=== PATIENT | female | born 1945 | race Caucasian/White ===

== ENCOUNTER 2020-07-18 12:36 | Observation (INO) | payer OTHER, BC ==
[2020-07-18 14:50] LABS: Absolute Lymphocytes (CBC) 1.1 K/uL (0.7-4.9); Basophils % 2.1 % (0-1.3); Lymphocytes % 23.1 % (15.3-44.8); MPV 9.8 fL (7.6-11.3); RBC Red Blood Cell Count 4.57 M/uL (3.86-4.86)
[2020-07-18 14:56] LABS: Protime INR 1.08
[2020-07-18 15:08] LABS: ALT/SGPT 20 U/L (12-78); AST/SGOT 13 U/L (15-37); Albumin 4.3 g/dL (3.4-5.0); Alkaline Phosphatase 73 U/L (45-117); BUN Blood Urea Nitrogen 16 mg/dL (7-18); Bicarbonate 29 mmol/L (21-32); Bilirubin Direct 0.2 mg/dL (0-0.2); Bilirubin Total 1.1 mg/dL (0.2-1.0); Glucose Level 82 mg/dL (74-106); Magnesium 2.2 mg/dL (1.8-2.4); NT PRO-BNP 102 pg/mL (<450); Potassium 3.8 mmol/L (3.5-5.1); Protein, Total 7.8 g/dL (6.4-8.2); Sodium Level 135 mmol/L (136-145); Troponin (Emerg Dept Use Only) < 0.02 ng/mL (0.0-0.045)
[2020-07-18] MEDS ORDERED: ASPIRIN 81 MG CHEWABLE TABLET ONE (15:12)
--- NOTE | 2020-07-18 15:59 | RAD REPORT ---
EXAM DESCRIPTION: RAD - Chest Single View - 07/18/2020 3:18 pm CLINICAL HISTORY: CHEST PAIN COMPARISON: None TECHNIQUE: AP portable chest image was obtained 07/18/2020 3:18 pm . FINDINGS: Lungs are clear. Heart and vasculature are normal. No measurable pleural effusion and no p neumothorax. No acute bony abnormality seen. No acute aortic findings suspected. IMPRESSION: No acute cardiopulmonary process.
--- NOTE | 2020-07-18 16:12 | ER ---
Nurse's Notes [facility] Name: Love Alexander Age: 74 yrs Sex: Female : 1945 Arrival Date: 07/18/2020 Time: 12:37 Bed 5 Private MD: Chris Sen H Diagnosis: Chest pain, unspecified Presentation: 07/18 12:44 Chief complaint: Patient states: Chest pain started 1 hr ago. Pain described as ca1 pressure on the chest. Denies HX of heart problems. Denies cough. Denies injury to chest. Coronavirus screen: Client denies travel out of the [place] in the last 14 days. At this time, the client does not indicate any symptoms associated with coronavirus-19. Ebola Screen: Patient negative for fever greater than or equal to 101.5 degrees Fahrenheit, and additional compatible Ebola Virus Disease symptoms Patient denies exposure to infectious person. Patient denies travel to an Ebola-affected area in the 21 days before illness onset. No symptoms or risks identified at this time. Initial Sepsis Screen: Does the patient meet any 2 criteria? No. Patient's initial sepsis screen is negative. Does the patient have a suspected source of infection? No. Patient's initial sepsis screen is negative. Risk Assessment: Do you want to hurt yourself or someone else? Patient reports no desire to harm self or others. Onset of symptoms was July 18, 2020. 12:44 Method Of Arrival: Ambulatory ca1 12:44 Acuity: PIYUSH 2 ca1 Historical: - Allergies: 12:48 No Known Allergies; ca1 - Home Meds: 12:48 None [Active]; ca1 - PMHx: 12:48 Hypertension; ca1 - PSHx: 12:48 Hysterectomy; Cholecystectomy; ca1 - Immunization history:: Client reports receiving the 2nd dose of the Covid vaccine, Date received: June 2020 Pneumococcal vaccine is not up to date, Flu vaccine is up to date. - Social history:: Smoking status: Patient denies any tobacco usage or history of. Screenin:11 Abuse screen: Denies threats or abuse. Denies injuries from another. Nutritional jl7 screening: No deficits noted. Tuberculosis screening: No symptoms or risk factors identified. Fall Risk IV access (20 points). Total Alfaro Fall Scale indicates No Risk (0-24 pts). Assessment: 14:00 General: Appears in no apparent distress. uncomfortable, Behavior is calm, cooperative, jl7 appropriate for age. Pain: Complains of pain in chest Pain does not radiate. Pain currently is 2 out of 10 on a pain scale. at worst was 10 out of 10 on a pain scale. Quality of pain is described as pressure, Pain began 2 hours ago. Is intermittent. Neuro: Level of Consciousness is awake, alert, obeys commands, Oriented to person, place, time, situation. Cardiovascular: Heart tones present Patient's skin is warm and dry. Rhythm is sinus rhythm. Respiratory: Airway is patent Respiratory effort is even, unlabored, Respiratory pattern is regular, symmetrical, Denies shortness of breath. Derm: Skin is pink, warm \T\ dry. Vital Signs: 12:44 BP 183 / 95; Pulse 75; Resp 16 S; Temp 97.4(TE); Pulse Ox 98% on R/A; Weight 61.69 kg ca1 (R); Height 5 ft. 5 in. (165.10 cm) (R); Pain 5/10; 14:11 BP 171 / 80; Pulse 83; Resp 17; Pulse Ox 98% ; Pain 2/10; jl7 14:45 BP 151 / 75; Pulse 69; Resp 17; Pulse Ox 95% ; jl7 15:30 BP 135 / 75; Pulse 71; Resp 18; Pulse Ox 98% ; jl7 16:15 BP 168 / 77; Pulse 67; Resp 17; Pulse Ox 97% ; jl7 17:45 BP 148 / 85; Pulse 75; Resp 17; Pulse Ox 98% ; jl7 18:30 BP 164 / 81; Pulse 78; Resp 17; Pulse Ox 95% ; jl7 19:55 BP 153 / 77; Pulse 72; Resp 16; Temp 98; Pulse Ox 98% on R/A; rv 12:44 Body Mass Index 22.63 (61.69 kg, 165.10 cm) ca1 ED Course: 12:37 Patient arrived in ED. am2 12:38 Chris Sen MD is Private Physician. am2 12:46 Triage completed. ca1 12:48 Arm band placed on right wrist. ca1 12:50 EKG done, by ED staff, reviewed by Ludmila MAS. jl7 13:37 [facility] Ho[facility]-C [facility]. kb 13:37 Neptali Beyer MD is Attending Physician. kb 14:00 Initial lab(s) drawn, by ED staff, sent to lab. Inserted saline lock: 20 gauge in right jl7 antecubital area, using aseptic technique. Blood collected. inserted by ACACIA Odell. 14:00 Patient maintains SpO2 saturation greater than 95% on room air. jl7 14:04 Clarice Shaffer, RN is Primary Nurse. jl7 14:11 Patient has correct armband on for positive identification. Placed in gown. Bed in low jl7 position. Call light in reach. Side rails up X 1. museum docent on. Pulse ox on. NIBP on. 14:36 Basic Metabolic Panel Sent. jl7 14:36 CBC with Diff Sent. jl7 15:18 XRAY Chest (1 view) In Process Unspecified. EDMS 16:11 Henrik Perez MD is Hospitalizing Provider. kb 19:08 No provider procedures requiring assistance completed. Patient admitted, IV remains in jl7 place. intact, No redness/swelling at site. Administered Medications: 14:56 Drug: Aspirin Chewable Tablet 324 mg Route: PO; jl7 19:07 Follow up: Response: No adverse reaction jl7 Outcome: 16:12 Decision to Hospitalize by Provider. kb 19:50 Admitted to Med/surg accompanied by tech, via wheelchair, room 208, Other sbar, ekg rv Report called to james koehler 19:50 Condition: good 19:50 Instructed on the need for admit. 19:56 Patient left the ED. rv Signatures: Dispatcher [employer] EDRI Ludmila Hopper, CLINICAL SOCIAL WORK THERAPIST-C CLINICAL SOCIAL WORK THERAPIST-Ckb Clarice Shaffer, ACACIA RN jl7 Farrah Silver Ronaldo, RN RN rv Lacy Sommer RN RN ca1 Corrections: (The following items were deleted from the chart) 12:50 12:44 Acuity: PIYUSH 3 ca1 ca1
--- NOTE | 2020-07-18 16:12 | EDPHYS ---
Physician Documentation [facility] Name: Love Alexander Age: 74 yrs Sex: Female : 1945 Arrival Date: 07/18/2020 Time: 12:37 Bed 5 Private MD: Chris Sen H ED Physician Neptali Beyer HPI: 07/18 15:57 This 74 yrs old Female presents to ER via Ambulatory with complaints of Chest kb Pain, Chest Pressure. 15:58 The patient or guardian reports chest pain that is located primarily in the substernal kb area, anterior chest wall, left. Onset: just prior to arrival. The pain does not radiate. Associated signs and symptoms: The patient has no apparent associated signs or symptoms. The chest pain is described as a pressure. Duration: The patient or guardian reports a single episode, that is still ongoing. Modifying factors: The symptoms are alleviated by nothing. the symptoms are aggravated by nothing. Severity of pain: At its worst the pain was moderate severe in the emergency department the pain has improved. The patient has not experienced similar symptoms in the past. The patient has not recently seen a physician. Pt reports she was reading a book in her car, waiting for to complete rehab when she started having 10/10 chest pain/pressure. STates she didn't know if she was going to be able to walk, but made it inside. The PT took her BP and it was high, then said she heard an irregular heart beat so she sent her to the ER. Denies history of heart disease or similar symptoms. . Historical: - Allergies: 12:48 No Known Allergies; ca1 - Home Meds: 12:48 None [Active]; ca1 - PMHx: 12:48 Hypertension; ca1 - PSHx: 12:48 Hysterectomy; Cholecystectomy; ca1 - Immunization history:: Client reports receiving the 2nd dose of the Covid vaccine, Date received: June 2020 Pneumococcal vaccine is not up to date, Flu vaccine is up to date. - Social history:: Smoking status: Patient denies any tobacco usage or history of. ROS: 15:57 Constitutional: Negative for fever, chills, and weight loss, Respiratory: Negative for kb shortness of breath, cough, wheezing, and pleuritic chest pain, Abdomen/GI: Negative for abdominal pain, nausea, vomiting, diarrhea, and constipation, MS/Extremity: Negative for injury and deformity, Skin: Negative for injury, rash, and discoloration, Neuro: Negative for headache, weakness, numbness, tingling, and seizure. 15:57 Cardiovascular: Positive for chest pain, Negative for edema, orthopnea, palpitations, paroxysmal nocturnal dyspnea. Exam: 15:57 Constitutional: This is a well developed, well nourished patient who is awake, alert, kb and in no acute distress. Head/Face: Normocephalic, atraumatic. Cardiovascular: Regular rate and rhythm with a normal S1 and S2. No gallops, murmurs, or rubs. No pulse deficits. Respiratory: Respirations even and unlabored. No increased work of breathing, no retractions or nasal flaring. Abdomen/GI: Soft, non-tender. No distention Skin: Warm, dry with normal turgor. Normal color. MS/ Extremity: Pulses equal, no cyanosis. Neurovascular intact. Full, normal range of motion. Neuro: Awake and alert, GCS 15, oriented to person, place, time, and situation. Moves all extremities. Normal gait. 16:12 ECG was reviewed by the Attending Physician. kb Vital Signs: 12:44 BP 183 / 95; Pulse 75; Resp 16 S; Temp 97.4(TE); Pulse Ox 98% on R/A; Weight 61.69 kg ca1 (R); Height 5 ft. 5 in. (165.10 cm) (R); Pain 5/10; 14:11 BP 171 / 80; Pulse 83; Resp 17; Pulse Ox 98% ; Pain 2/10; jl7 14:45 BP 151 / 75; Pulse 69; Resp 17; Pulse Ox 95% ; jl7 15:30 BP 135 / 75; Pulse 71; Resp 18; Pulse Ox 98% ; jl7 16:15 BP 168 / 77; Pulse 67; Resp 17; Pulse Ox 97% ; jl7 17:45 BP 148 / 85; Pulse 75; Resp 17; Pulse Ox 98% ; jl7 18:30 BP 164 / 81; Pulse 78; Resp 17; Pulse Ox 95% ; jl7 19:55 BP 153 / 77; Pulse 72; Resp 16; Temp 98; Pulse Ox 98% on R/A; rv 12:44 Body Mass Index 22.63 (61.69 kg, 165.10 cm) ca1 MDM: 13:37 Patient medically screened. kb 15:57 Data reviewed: vital signs, nurses notes. Data interpreted: Pulse oximetry: on room air kb is 98 %. Interpretation: normal. Counseling: I had a detailed discussion with the patient and/or guardian regarding: the historical points, exam findings, and any diagnostic results supporting the discharge/admit diagnosis, lab results, radiology results, the need for further work-up and treatment in the hospital. 16:12 Physician consultation: Henrik Perez MD was contacted at 16:12, regarding admission, kb to the telemetry unit. patient's condition, and will see patient in ED, shortly. 07/18 13:38 Order name: Basic Metabolic Panel kb 07/18 13:38 Order name: CBC with Diff kb 07/18 13:38 Order name: LFT's; Complete Time: 15:08 kb 07/18 13:38 Order name: Magnesium; Complete Time: 15:08 kb 07/18 13:38 Order name: NT PRO-BNP; Complete Time: 15:08 kb 07/18 13:38 Order name: PT-INR; Complete Time: 15:08 kb 07/18 13:38 Order name: Troponin (emerg Dept Use Only); Complete Time: 15:08 kb 07/18 13:59 Order name: Basic Metabolic Panel; Complete Time: 15:08 EDMS 07/18 13:59 Order name: CBC with Automated Diff; Complete Time: 15:25 EDMS 07/18 16:15 Order name: COVID-19 : Document "Date of Symptom Onset" if Symptomatic. bd 07/18 16:26 Order name: CKMB Creatine Kinase MB; Complete Time: 18:35 EDMS 07/18 16:26 Order name: Creatine Phosphokinase; Complete Time: 18:35 EDMS 07/18 16:26 Order name: Troponin I; Complete Time: 18:35 EDMS 07/18 19:10 Order name: SARS-COV-2 RT PCR; Complete Time: 19:11 EDMS 07/18 12:50 Order name: EKG; Complete Time: 12:52 ca1 07/18 12:50 Order name: EKG - Nurse/Tech; Complete Time: 12:50 ca1 07/18 13:38 Order name: XRAY Chest (1 view); Complete Time: 16:01 kb 07/18 13:38 Order name: Cardiac monitoring; Complete Time: 14:08 kb 07/18 13:38 Order name: IV Saline Lock; Complete Time: 14:08 kb 07/18 13:38 Order name: Labs collected and sent; Complete Time: 14:08 kb 07/18 13:38 Order name: O2 Per Protocol; Complete Time: 14:08 kb 07/18 13:38 Order name: O2 Sat Monitoring; Complete Time: 14:08 kb 07/18 16:26 Order name: Heart Healthy EDOR EC:12 Rate is 76 beats/min. Rhythm is regular. QRS Dumas is Normal. [place] interval is normal at kb 172 msec. QRS interval is normal at 80 msec. QT interval is normal at 374 msec. Administered Medications: 14:56 Drug: Aspirin Chewable Tablet 324 mg Route: PO; jl7 19:07 Follow up: Response: No adverse reaction jl7 Disposition: 07/19 08:13 Co-signature as Attending Physician, Neptali Beyer MD I agree with the assessment and kdr plan of care. Disposition: 07/18/20 16:12 Hospitalization ordered by Henrik Perez for Observation. Preliminary diagnosis is Chest pain, unspecified. - Bed requested for Telemetry/MedSurg (observation). - Status is Observation. rv - Condition is Stable. - Problem is new. - Symptoms are unchanged. Signatures: Dispatcher [employer] EDOR Ludmila Hopper, CASING INSPECTOR-C CASING INSPECTOR-Ckb Neptali Beyer MD MD kdr Leal, Jahala, RN RN jl7 Marcellus Moreno RN RN rv Lacy Sommer, RN RN ca1 Ruchi Christian RN RN rd1 Corrections: (The following items were deleted from the chart) 07/18 19:39 16:12 Hospitalization Ordered by Henrik Perez MD for Observation. Preliminary rd1 diagnosis is Chest pain, unspecified. Bed requested for Telemetry/MedSurg (observation). Status is Observation. Condition is Stable. Problem is new. Symptoms are unchanged. kb 19:56 19:39 07/18/2020 16:12 Hospitalization Ordered by Henrik Perez MD for Observation. rv Preliminary diagnosis is Chest pain, unspecified. Bed requested for Telemetry/MedSurg (observation). Status is Observation. Condition is Stable. Problem is new. Symptoms are unchanged. rd1
[2020-07-18] MEDS ORDERED: ONDANSETRON 4 MG/2 ML VIAL IV PRN (16:21)
[2020-07-18] MEDS ORDERED: IPRATROPIUM BROM 0.5MG/2.5ML NEB PRN (16:21)
[2020-07-18] MEDS ORDERED: ALBUTEROL 2.5 MG/3 ML NEB SOL NEB PRN (16:21)
[2020-07-18] MEDS ORDERED: MORPHINE 2 MG/ML SYR IV PRN (16:25)
--- NOTE | 2020-07-18 16:27 | P.HP ---
Certification for Inpatient With expected LOS: <2 Midnights Patient will require the following post-hospital care: None Practitioner: I am a practitioner with admitting privileges, knowledge of patient current condition, hospital course, and medical plan of care. Services: Services provided to patient in accordance with Admission requirements found in Title 42 Section 412.3 of the Code of Federal Regulations Patient History Date of Service: 07/18/20 Reason for admission: chest pain, hypertensive urgency. History of Present Illness: 74 y o female pt with medical hx significant for hypertension which she has not been properly managing. she reports episode of acute chest pain that radiates to the left jaw region while she was reading a book in her care. no overt exertional chest pain. no fever, chills, rigor, N/V or abd pain reported. no pedal swelling reported. She did report that she was taking losartan for BP control previously but because of PCP issues she was not able to get refills. her last use was over 1 year ago. In the ED, her labs and imaging studies were not overtly concerning. she was asked to be admitted for chest pain work up. Home medications list reviewed: Yes Physical Examination - Physical Exam General: Alert, Oriented x3 HEENT: Atraumatic, Normocephalic Neck: Supple Respiratory: Clear to auscultation bilaterally Cardiovascular: Regular rate/rhythm, Normal S1 S2 Gastrointestinal: Soft and benign Musculoskeletal: No swelling Neurological: Normal speech, Normal strength at 5/5 x4 extr, Cranial nerves 3-12 intact, Normal affect - Studies Laboratory Data (last 24 hrs) 07/18/20 13:51: PT 12.4, INR 1.08 07/18/20 13:51: WBC 4.70, Hgb 14.0, Hct 41.0, Plt Count 207 07/18/20 13:51: Sodium 135 L, Potassium 3.8, BUN 16, Creatinine 0.64, Glucose 82, Magnesium 2.2, Total Bilirubin 1.1 H, AST 13 L, ALT 20, Alkaline Phosphatase 73 Assessment and Plan - Plan 1. Hypertensive urgency-Her BP was elevated at 180 on initial monitoring. Its n ow in the 160s. we think she had an hypertensive urgency episode that resulted in acute chest pain. we will restart her losartan dose and monitor her vitals closely. 2. Chest pain-Etiology is yet to be fully determined. we will work up with lipid panel in am, troponin and CKMB trend. we will obtain echocardiogram for further evaluation. Discharge Plan: Home - Advance Directives Does patient have a Living Will: No Does patient have a Durable POA for Healthcare: No
[2020-07-18] MEDS ORDERED: ACETAMINOPHEN 325 MG TABLET PO PRN (16:30)
[2020-07-18 17:57] LABS: CKMB Creatine Kinase MB < 1.0 ng/mL (0.3-3.6); Creatine Phosphokinase 50 U/L (26-192); Troponin I < 0.02 ng/mL (0.0-0.045)
[2020-07-18] MEDS: ASPIRIN 81 MG CHEWABLE TABLET PO SCH (18:30)
[2020-07-18] MEDS: ENOXAPARIN 40 MG/0.4 ML SQ SCH (20:57)
[2020-07-18 23:16] VITALS: BMI 22.6
[2020-07-18 23:57] VITALS: O2SAT 97
[2020-07-19 02:18] LABS: CKMB Creatine Kinase MB < 1.0 ng/mL (0.3-3.6); Creatine Phosphokinase 43 U/L (26-192); Troponin I < 0.02 ng/mL (0.0-0.045)
[2020-07-19 05:55] LABS: Absolute Lymphocytes (CBC) 1.1 K/uL (0.7-4.9); Basophils % 1.9 % (0-1.3); Hematocrit 38.2 % (36.0-45.0); MPV 9.4 fL (7.6-11.3); RBC Red Blood Cell Count 4.33 M/uL (3.86-4.86)
[2020-07-19 06:07] LABS: BUN Blood Urea Nitrogen 13 mg/dL (7-18); Bicarbonate 29 mmol/L (21-32); Glucose Level 88 mg/dL (74-106); Magnesium 2.3 mg/dL (1.8-2.4); Potassium 3.8 mmol/L (3.5-5.1); Sodium Level 137 mmol/L (136-145)
--- NOTE | 2020-07-19 07:19 | EKG ---
Test Date: 2020-07-18 Test Time: 16:08:57 Blow Mold Operator: TIARA MEASUREMENT RESULTS: Intervals: Rate: 76 UT: 172 QRSD: 80 QT: 374 QTc: 420 Ragley: P: 63 UT: 172 QRS: 44 T: 59 INTERPRETIVE STATEMENTS: Normal sinus rhythm Normal ECG Compared to ECG 06/11/2000 12:37:00 No significant changes Electronically Signed On 07-19-20 07:18:08 CDT by Daryl Blood
[2020-07-19] MEDS: ASPIRIN 81 MG CHEWABLE TABLET PO SCH (08:56)
[2020-07-19] MEDS ORDERED: PNEUMOCOCCAL VACCINE 0.5 ML IMVAC ONE (09:00)
[2020-07-19] MEDS: ENOXAPARIN 40 MG/0.4 ML SQ SCH (09:00)
[2020-07-19] MEDS ORDERED: AMLODIPINE 5 MG TAB PO SCH (09:26)
[2020-07-19 09:48] LABS: CKMB Creatine Kinase MB < 1.0 ng/mL (0.3-3.6); Creatine Phosphokinase 44 U/L (26-192); Troponin I < 0.02 ng/mL (0.0-0.045)
[2020-07-19 12:19] VITALS: BP 145/69; TEMP 97
--- NOTE | 2020-07-19 13:10 | P.DS ---
Admission Date: 07/18/20 Discharge Date: 07/19/20 Disposition: ROUTINE DISCHARGE Discharge Condition: FAIR Reason for Admission: chest pain, hypertensive urgency. Brief History of Present Illness: 74-year-old woman with a history of hypertension presented to the ED due to sudden onset of chest pain which occurred at rest. Her initial troponin in the ED was negative. EKG shows sinus rhythm with no ischemic changes. Patient reports very high blood pressure reading prior to coming to the ED. She reported noncompliance with her antihypertensives. Patient placed under observation for ACS rule out. Hospital Course: Troponin trended negative. Blood pressure was controlled with oral amlodipine. Patient was asymptomatic quality assurance monitor final-unremarkable. ACS has been ruled out. Recommended outpatient nuclear stress test. Patient will follow with Dr. Blood for arrangement for the stress test. She is prescribed oral amlodipine to control her blood pressure. She is also informed to find a primary care physician with monitor her blood pressure and refill her antihypertensives. Vital Signs/Physical Exam: Temp Pulse Resp BP Pulse Ox 97 F 77 18 145/69 H 97 07/19/20 12:00 07/19/20 12:00 07/19/20 12:00 07/19/20 12:00 07/19/20 12:00 General: Alert, In no apparent distress, Oriented x3 HEENT: Mucous membr. moist/pink Neck: Supple, JVD not distended Respiratory: Clear to auscultation bilaterally, Normal air movement Cardiovascular: No edema, Regular rate/rhythm, Normal S1 S2 Gastrointestinal: Normal bowel sounds, Soft and benign, Non-distended, No tenderness Musculoskeletal: No swelling Integumentary: No rashes Neurological: Normal strength at 5/5 x4 extr, Cranial nerves 3-12 intact Laboratory Data at Discharge: WBC 4.70 K/uL (4.3-10.9) 07/19/20 05:28 Hgb 13.2 g/dL (12.0-15.0) 07/19/20 05:28 Hct 38.2 % (36.0-45.0) 07/19/20 05:28 Plt Count 185 K/uL (152-406) 07/19/20 05:28 PT 12.4 SECONDS (9.5-12.5) 07/18/20 13:51 INR 1.08 07/18/20 13:51 Sodium 137 mmol/L (136-145) 07/19/20 05:28 Potassium 3.8 mmol/L (3.5-5.1) 07/19/20 05:28 BUN 13 mg/dL (7-18) 07/19/20 05:28 Creatinine 0.56 mg/dL (0.55-1.3) 07/19/20 05:28 Glucose 88 mg/dL (74-106) 07/19/20 05:28 Magnesium 2.3 mg/dL (1.8-2.4) 07/19/20 05:28 Total Bilirubin 1.1 mg/dL (0.2-1.0) H 07/18/20 13:51 AST 13 U/L (15-37) L 07/18/20 13:51 ALT 20 U/L (12-78) 07/18/20 13:51 Alkaline Phosphatase 73 U/L (45-117) 07/18/20 13:51 Troponin I < 0.02 ng/mL (0.0-0.045) 07/19/20 09:09 Home Medications: Triamcinolone Acetonide [Nasacort] 1 spray IH BEDTIME PRN PRN 07/18/20 Amlodipine [Norvasc*] 10 mg PO DAILY #30 tab 07/19/20 Aspirin [Aspirin EC 81 MG] 81 mg PO DAILY #30 tablet. 07/19/20 New Medications: Aspirin [Aspirin EC 81 MG] 81 mg PO DAILY #30 tablet. Amlodipine [Norvasc*] 10 mg PO DAILY #30 tab Diet: AHA Activity: Ad columba Followup: Daryl Blood MD [ACTIVE - CAN ADMIT] - 1 Week (For stress test and Echo.) Cortes Diaz MD [ACTIVE - CAN ADMIT] - Darcy Martinez PA [Primary Care Provider] -
[2020-07-20] MEDS ORDERED: AMLODIPINE 5 MG TAB PO SCH (09:21)
== END 2020-07-19 14:25 | disposition home or self-care (01) ==
LOC: ER 12:36 → ERHOLD 16:22 → 2ND 19:54 → 4TH 19:55 → 2ND 20:04
PROVIDERS: ADMIT Internal Medicine Nephrology; ATTEND Internal Medicine
DX: R07.9 Chest pain, unspecified (principal); I16.0 Hypertensive urgency; I10 Essential (primary) hypertension; Z91.14 Patient's other noncompliance with medication regimen; Z90.49 Acquired absence of other specified parts of digestive tract; Z90.710 Acquired absence of both cervix and uterus; Z20.822 Contact with and (suspected) exposure to COVID-19
CPT/HCPCS: 93005 ×2; 85025 ×2; 80048 ×2; 36415; 83735 ×2; 82550 ×3; 85610; 80076; 84484 ×4; 82553 ×3; 83880; 71045; 99285; U0003; J1650 ×2; G0378 ×3